=== PATIENT | male | born 1990 | race Caucasian/White ===

== ENCOUNTER 2018-06-23 02:52 | Emergency (ER) | payer SELFPAY ==
[2018-06-23] MEDS ORDERED: NS 1,000 ML IV ONE (02:57)
[2018-06-23] MEDS ORDERED: ALBUTEROL INH PREPACK MDI TAKEHOME ONE (03:05)
[2018-06-23] MEDS ORDERED: AZITHROMYCIN 250 MG TAB PO ONE (03:05)
--- NOTE | 2018-06-23 03:05 | EDPHY ---
H & P Stated Complaint: cough and sneezing while being arriested Time Seen by Provider: 06/23/18 03:02 HPI/ROS: HPI CHIEF COMPLAINT: Cough, congestion HISTORY OF PRESENT ILLNESS: 27-year-old male, presents emergency room with cough and congestion, patient states that he thinks he has pneumonia. He was in a park this evening lying on a park bench she is homeless. The police went to clear the park make contact with him as with the patient decided that he had increasing cough over the past few days and wanted medical attention. The police called EMS to evaluate him and EMS brought him here in the emergency room. Upon arrival to the emergency room the patient is stable vital signs and is in no acute distress. He complains of a cough with green sputum as well as frequent sneezing with green discharge. Denies any fever. He does state he smokes tobacco daily, additionally drinks alcohol daily and is homeless. Denies IV drug use. Past Medical History: Denies significant medical history Past Surgical History: Denies significant surgical history Social History: Homeless, daily alcohol use, daily tobacco use. Family History: Noncontributory ROS REVIEW OF SYSTEMS: A comprehensive 10 point review of systems is otherwise negative aside from elements mentioned in the history of present illness. Exam Constitutional appears well nontoxic no acute distress, triage nursing summary reviewed, vital signs reviewed, awake/alert. Eyes normal conjunctivae and sclera, EOMI, PERRLA. HENT normal inspection, atraumatic, moist mucus membranes, no epistaxis, neck supple/ no meningismus, no raccoon eyes. Respiratory bronchitic sounding cough on exam, clear to auscultation bilaterally, normal breath sounds, no respiratory distress, no wheezing. Cardiovascular rate normal, regular rhythm, no murmur, no edema, distal pulses normal. Gastrointestinal soft, non-tender, no rebound, no guarding, normal bowel sounds, no distension, no pulsatile mass. Genitourinary no CVA tenderness. Musculoskeletal no midline vertebral tenderness, full range of motion, no calf swelling, no tenderness of extremities, no meningismus, good pulses, neurovascularly intact. Skin pink, warm, & dry, no rash, skin atraumatic. Neurologic awake, alert and oriented x 3, AAOx3, moves all 4 extremities equally, motor intact, sensory intact, CN II-XII intact, normal cerebellar, normal vision, normal speech. Psychiatric normal mood/affect. Heme/Lymph/Immune no lymphadenopathy. Differential Diagnosis: Includes but is not limited to in a particular order upper respiratory tract infection, viral syndrome, viral pneumonia, bacterial pneumonia, pneumothorax, CHF, acute coronary syndrome Medical Decision Making: Plan for this patient two view chest x-ray to rule pneumonia, basic blood work and re-evaluate. Re-evaluation: EKG interpretation by me on record in [facility] system. Impression time of EKG 314 sinus rhythm rate of 77, early [place] pulp pattern. No evidence of acute ischemia no significant ST elevation. No signs of cardiac arrhythmia. ED x-ray chest two view: Negative for pneumonia. No focal dense infiltrate. X -ray reviewed by myself. Blood work reviewed. Troponin 0.00. EKG nonischemic. The initial chest x-ray two view showed a line up the right apex however repeated the x-ray one view without any remaining line. No evidence pneumothorax on the x-ray. No dense infiltrate. Will prescribe albuterol, azithromycin. Recommend patient refrain from smoking tobacco drinking alcohol or drugs. Return precautions discussed. He understands He understands return precautions return emergency room if worsening shortness of breath, fever, vomiting. Source: Patient - Personal History Current Tetanus/Diphtheria Vaccine: No Current Tetanus Diphtheria and Acellular Pertussis (TDAP): No - Medical/Surgical History Hx Asthma: No Hx Chronic Respiratory Disease: No Hx Diabetes: No Hx Cardiac Disease: No Hx Renal Disease: No Hx Cirrhosis: No Hx Alcoholism: No Hx HIV/AIDS: No Hx Splenectomy or Spleen Trauma: No Other PMH: denies - Social History Smoking Status: Heavy smoker Constitutional: Initial Vital Signs Temperature (C) 36.5 C 06/23/18 02:55 Heart Rate 74 06/23/18 02:55 Respiratory Rate 18 06/23/18 02:55 Blood Pressure 119/81 H 06/23/18 02:55 O2 Sat (%) 99 06/23/18 02:55 O2 Delivery Mode Room Air Allergies/Adverse Reactions: No Known Allergies Allergy (Unverified 06/23/18 02:59) Home Medications: Medication Instructions Recorded Azithromycin [Zithromax] 250 mg PO DAILY #6 tab 06/23/18 Medical Decision Making - Data Points Laboratory Results: Laboratory Results 06/23/18 03:00 06/23/18 03:00 06/23/18 06/23/18 06/23/18 03:22 03:00 03:00 WBC 12.80 10^3/uL H 10^3/uL (3.80-9.50) RBC 4.35 10^6/uL L 10^6/uL (4.40-6.38) Hgb 14.8 g/dL g/dL (13.7-17.5) Hct 42.8 % % (40.0-51.0) MCV 98.4 fL fL (81.5-99.8) MCH 34.0 pg pg (27.9-34.1) MCHC 34.6 g/dL g/dL (32.4-36.7) RDW 12.4 % % (11.5-15.2) Plt Count 365 10^3/uL 10^3/uL (150-400) MPV 8.5 fL L fL (8.7-11.7) Neut % (Auto) 67.9 % % (39.3-74.2) Lymph % (Auto) 21.1 % % (15.0-45.0) Hood % (Auto) 7.7 % % (4.5-13.0) Eos % (Auto) 2.3 % % (0.6-7.6) Baso % (Auto) 0.6 % % (0.3-1.7) Nucleat RBC Rel Count 0.0 % % (0.0-0.2) Absolute Neuts (auto) 8.70 10^3/uL H 10^3/uL (1.70-6.50) Absolute Lymphs (auto) 2.70 10^3/uL 10^3/uL (1.00-3.00) Absolute Monos (auto) 0.98 10^3/uL H 10^3/uL (0.30-0.80) Absolute Eos (auto) 0.29 10^3/uL 10^3/uL (0.03-0.40) Absolute Basos (auto) 0.08 10^3/uL 10^3/uL (0.02-0.10) Absolute Nucleated RBC 0.00 10^3/uL 10^3/uL (0-0.01) Immature Gran % 0.4 % % (0.0-1.1) Immature Gran # 0.05 10^3/uL 10^3/uL (0.00-0.10) Sodium 143 mEq/L mEq/L (135-145) Potassium 4.0 mEq/L mEq/L (3.3-5.0) Chloride 106 mEq/L mEq/L (97-110) Carbon Dioxide 25 mEq/l mEq/l (22-31) Anion Gap 12 mEq/L mEq/L (8-16) BUN 10 mg/dL mg/dL (7-23) Creatinine 0.8 mg/dL mg/dL (0.7-1.3) Estimated GFR > 60 Glucose 88 mg/dL mg/dL (70-100) Calcium 9.0 mg/dL mg/dL (8.5-10.4) POC Troponin I 0.00 ng/mL ng/mL (0.00-0.08) Medications Given: Discontinued Medications Azithromycin (Zithromax) 500 mg PO EDNOW ONE PRN Reason: Protocol Stop: 06/23/18 03:06 Last Admin: 06/23/18 03:14 Dose: 500 mg Sodium Chloride (Ns) 1,000 mls @ 0 mls/hr IV EDNOW ONE; Wide Open PRN Reason: Protocol Stop: 06/23/18 02:58 Last Admin: 06/23/18 03:15 Dose: 1,000 mls Point of Care Test Results: Chemistry 06/23/18 03:22 POC Troponin I 0.00 ng/mL ng/mL (0.00-0.08) Departure - Departure Disposition: Home, Routine, Self-Care Clinical Impression: URI (upper respiratory infection) Qualifiers: URI type: unspecified viral URI Qualified Code(s): J06.9 - Acute upper respiratory infection, unspecified Condition: Good Instructions: Upper Respiratory Infection (ED) Additional Instructions: 1. Drink lots of fluids stay well-hydrated 2. Stop smoking tobacco and stop drinking alcohol Referrals: Patient,NotPresent [Primary Care Provider] - As per Instructions Prescriptions: Azithromycin [Zithromax] 250 mg PO DAILY #6 tab
[2018-06-23 03:09] LABS: PLATELET COUNT 365 10^3/uL (150-400)
--- NOTE | 2018-06-23 03:18 | CPEKG ---
Heart Rate: 77 RR Interval: 779 P-R Interval: 184 QRSD Interval: 92 QT Interval: 372 QTC Interval: 421 P Erhard: 73 QRS Erhard: 50 T Wave Erhard: 56 EKG Severity - NORMAL ECG - EKG Impression: SINUS RHYTHM EKG Impression: ST ELEV, PROBABLE NORMAL EARLY REPOL PATTERN Electronically Signed By: Torin Russo 23-Jun-2018 08:20:16
[2018-06-23 05:57] VITALS: BP 132/88
== END 2018-06-23 05:30 | disposition home or self-care (01) ==
DX: J06.9 Acute upper respiratory infection, unspecified (principal); E86.9 Volume depletion, unspecified; F17.200 Nicotine dependence, unspecified, uncomplicated
CPT/HCPCS: 84484-PO